=== PATIENT | female | born 1980 | race Caucasian/White ===

== ENCOUNTER 2024-10-09 21:53 | Emergency (ER) | payer SELFPAY ==
[2024-10-09 21:55] VITALS: BP 118/74
[2024-10-09] MEDS: KEFLEX 500 MG PO (22:52)
--- NOTE | 2024-10-09 22:52 | ED.SKININJ ---
HPI-Injury
General
Chief Complaint: Skin Problem
Source: patient
Exam Limitations: none
Time Seen by Provider: 10/09/24 22:34
Nursing documentation reviewed up to this point in time: agreed with
History of Present Illness-Injury
Is this injury a work related problem?: No
Is pt an associate of [facility]/[employer]?: No
Initial Injury comments:
Patient to ED with complaint of redness and swelling to right distal index finger. Symptoms started approx 2 months ago, improves and then returns. Brought self to ED for eval. Denies fever/chills..
Past History
Past History
ED Past Medical History: None
ED Past Surgical History: None
Review of Systems
Review of Systems
Allergies reviewed?: Yes
All Other Systems: ROS reviewed and negative except as documented in HPI and ROS
Constitutional: Reports no symptoms
Musculoskeletal: Reports no symptoms
Skin: Reports other (erythema to right distal index finger. Deformity to nail.)
Neurological: Reports no symptoms
Psychiatric: Reports no symptoms
Phy Exam
General Physical Exam
General Presentation: well appearing and no apparent distress
General age: appears stated age
General Skin: warm and dry
General Habitus: normal
General Mental: alert
Musculoskeletal Exam
Musculoskeletal Exam: full ROM and neuro vasc intact
Skin Exam
Skin Exam: warm/dry, no rash and other (Erythema to right distal index finger. No fluctuance, no drainage. Nail intact but deformed (alll other nails normal) Bacterial paronychia vs fungal infection)
Psychiatric Exam
Psychiatric Exam: normal mood/affect
Course
Orders/Labs/Results
Orders:
Orders
10/09/24 22:37
Cephalexin Monohydrate [Keflex] 500 mg PO NOW STA
Vital Signs
Initial and Last Documented VS:
Initial Vital Signs
Temp Pulse Resp BP Pulse Ox
98.5 F 77 18 118/74 100
10/09/24 21:55 10/09/24 21:55 10/09/24 21:55 10/09/24 21:55 10/09/24 21:55
Last Documented Vital Signs
Temp Pulse Resp BP Pulse Ox
98.5 F 77 18 118/74 100
10/09/24 21:55 10/09/24 21:55 10/09/24 21:55 10/09/24 21:55 10/09/24 21:55
*Critical Care Note
Total Time (30-74mins, 75-104mins- exclusive of procedures): Not Applicable
Update Note
Update Note:
Erythema to right distal index finger. No area of fluctuance, nothing to drain. Tender to touch. Nail is intact but deformed. All other nails are normal. Paronychia vs fungal infection. Will cover with Keflex and recommend anatifungal cream to
nail. Discussed with patient. SHe will perform warm soaks at home. Will follow up next week with PCP.
ED Attending Note
-
Portions of this chart may have been created with voice recognition software.� Occasional wrong word or��sound alike� substitutions may have occurred due to the inherent limitations of voice recognition software.
Discharge Plan
Departure
Patient Disposition: Home (Routine Discharge)
Date of Disposition: 10/09/24
Time of Disposition: 22:39
Patient with high blood pressure during this ER visit?: No
Condition: Good
Covid-19: Not Applicable
Discharge Problem:
Acute paronychia of finger
Instructions: Fungal nail infections, Cellulitis (Skin Infection), Adult (DC)
Prescriptions:
New
cephalexin 500 mg capsule
500 mg PO TID 7 Days Qty: 21 0RF
clotrimazole 1 % cream
1 applic topical BID 28 Days Qty: 30 0RF
Activity Restrictions/Additional Instructions:
Follow up with your family doctor.
Interventions
Interventions:
*Risk Screen - Suicide Last Done: 10/09/24 21:55
*General Assessment Last Done: 10/09/24 21:55
*Neglect/Abuse Screening Last Done: 10/09/24 21:55
Discharge Date and Time
Print Language: [place]
== END 2024-10-09 22:58 | disposition home or self-care (01) ==
LOC: EMR 21:53
PROVIDERS: EMERGENCY PHYSICIAN Student in an Organized Health Care Education/Training Program
DX: L03.011 Cellulitis of right finger (principal)
CPT/HCPCS: 99283

== ENCOUNTER → 2024-12-27 07:12 | Outpatient (REF) | payer OTHER, SELFPAY | LOC: WDC 07:12 | DX: Z12.31 Encounter for screening mammogram for malignant neoplasm of breast (principal) | CPT/HCPCS: 77063; 77067 ==